=== PATIENT | male | born 1955 | race Caucasian/White ===

== ENCOUNTER 2022-02-24 23:15 | Emergency (ER) | payer OTHER ==
[2022-02-24 23:29] VITALS: BP 135/82; PULSE 72; RESP 16; TEMP 97.7; BMI 31.9
[2022-02-24] MEDS ORDERED: ACETAMINOPHEN 325 MG TABLET (FP) PO ONE (23:41)
[2022-02-24] MEDS ORDERED: ACETAMINOPHEN 325 MG TABLET (FP) ONE (23:49)
[2022-02-25 00:49] LABS: BASO % 0.7 % (0-2.0); EOS % 2.3 % (0-4.5); HEMATOCRIT 43.5 % (35.4-49); HEMOGLOBIN 14.6 GM/dL (11.7-16.9); LYMPH % 38.8 % (8-40); MCH 31.7 pg (25.7-33.7); MCHC 33.7 g/dl (32.0-35.9); MONO % 11.8 % (3.8-10.2); NEUT % 46.4 % (42.8-82.8); PLATELET COUNT 198 10^3/uL (134-434); RBC 4.62 M/mm3 (4.00-5.60); RDW 12.7 % (11.9-15.9); WHITE BLOOD COUNT 5.4 K/mm3 (4.0-10.0)
[2022-02-25 01:18] LABS: CALCIUM 9.1 mg/dL (8.5-10.1)
[2022-02-25 01:19] LABS: ALBUMIN 3.8 g/dl (3.4-5.0); BLOOD UREA NITROGEN 18.7 mg/dL (7-18)
[2022-02-25 01:22] LABS: CREATININE 0.9 mg/dL (0.55-1.3)
[2022-02-25 01:23] LABS: BILIRUBIN,TOTAL 0.8 mg/dL (0.2-1)
[2022-02-25 01:24] LABS: TOT PROT 6.3 g/dl (6.4-8.2)
== END 2022-02-25 00:53 | disposition home or self-care (01) ==
LOC: FER 23:15
DX: K40.90 Unilateral inguinal hernia, without obstruction or gangrene, not specified as recurrent (principal)
CPT/HCPCS: 36415; 80053; 85025; 99283-25